=== PATIENT | female | born 1990 | race American Indian/Alaskan Native ===

== ENCOUNTER 2016-06-05 09:19 | Emergency (ER) | payer OTHER ==
[2016-06-05 09:26] VITALS: BP 130/93
--- NOTE | 2016-06-05 10:51 | Emergency Department Report ---
Entered by LAZARO AMOR, acting as scribe for MINNIE ALEXANDRA NP. ED Rash HPI - HPI Chief Complaint: Skin Rash Stated Complaint: RASH Time Seen by Provider: 06/05/16 09:54 Duration: 9 days Location: Upper Extremities (right and left inner elbows), Lower Extremities ( left popliteal fossa and left anterior foot) Suspected Cause: Other (Hx of eczema) Rash Symptoms: Yes Itching, No Facial Swelling, No Tongue/Oral Swelling, No Breathing Difficulties, No Choking Sensation, No Wheezing/Dyspnea, No Peeling, No Blistering, No Fever, No Lightheaded, No Malaise, No Myalgias Severity: moderate Other History: 26 year old female with a PMHx of eczema presents to the ED c/o a eczema flare-ups to her left and right inner elbows, left popliteal fossa, and left anterior foot that began 9 days ago. Patient reports that she usually gets similar episodes, but this episode is worse. 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 Associated symptom includes itching, cracked skin, but she denies fever, chills, myalgias, nausea, and vomiting. PT denies any infected areas of skin. She applied Neosporin with no relief to eczema flare-ups and Benadryl gave her minimal itching relief. Patient states the eczema worsened overnight due to scratching to relieve itch. NKDA. ED Review of Systems ROS: Stated complaint: RASH Other details as noted in HPI Comment: All other systems reviewed and negative Constitutional: denies: chills, fever Respiratory: denies: shortness of breath, wheezing Gastrointestinal: denies: nausea, vomiting Musculoskeletal: denies: myalgia Skin: rash ( eczema flare-ups to left and right inner elbows, left popliteal fossa and left anterior foot), other (cracked skin due to scratching ) ED Past Medical Hx - Past Medical History Previous Medical History?: No - Surgical History Past Surgical History?: No - Social History Smoking Status: Current Every Day Smoker Substance Use Type: Alcohol Rash Exam - Exam General: Vital signs noted. No distress. Alert and acting appropriately. HEENT: No Periorbital Edema, No Conjuctival Injection, No Chemosis, No Perioral Edema, No Tongue Edema, No Uvular Edema, No Compromised Airway, No Drooling Lungs: Yes Good Air Exchange, No Wheezes, No Ronchi, No Stridor, No Cough, No Labored Respirations, No Retractions, No Use of Accessory Muscles, No Other Abnormal Lung Sounds Heart: Yes Regular, No Murmur Skin: Yes Other (eczema like rash to fany AC, with small areas of excoriation fany , left anterior foot, and left popliteal fossa), No Urticarial Rash, No Maculopapular Rash, No Morbilliform rash, No Bulla(e), No Excoriations, No Weeping, No Tenderness, No Erythema, No Edema, No Encrustations Other: Positive: Abdomen Normal, Neurologic Normal, Musculoskeletal Normal ED Course Vital Signs 06/05/16 09:24 Temperature 98.1 F Pulse Rate 82 Respiratory 16 Rate Blood Pressure 130/93 O2 Sat by Pulse 100 Oximetry - Reevaluation(s) Reevaluation #1: 06/05/16 10:49 PT aware of dx and plan of care. PT advised to use a thick ointment to moisturize skin. 06/05/16 10:49 PT states she call follow up with Anthony LACEY for follow up. - Pulse Oximetry Interpretation Digit-Finger Initial Pulse Oximetry Readin Actions Taken: none ED Medical Decision Making - Differential Diagnosis hives, scabies, ezcema Critical care attestation.: If time is entered above; I have spent that time in minutes in the direct care of this critically ill patient, excluding procedure time. ED Disposition Clinical Impression: Acute eczema Disposition: DISCHARGED TO HOME OR SELFCARE Is pt being admited?: No Does the pt Need Aspirin: No Condition: Stable Instructions: Eczema (ED) Additional Instructions: No driving or ETOH after taking Vistaril Prescriptions: hydrOXYzine PAMOATE [Vistaril] 25 mg PO Q6HR PRN #12 capsule PRN Reason: Itching Triamcinolone 0.5% [Kenalog 0.5% CREAM] 1 applic TP TID 7 Days Referrals: PRIMARY CARE, [Primary Care Provider] - 3-5 Days Forms: Work/School Release Form(ED) Time of Disposition: 10:50 This documentation as recorded by the [facility] JASMINE,accurately reflects the service I personally performed and the decisions made by ,MINNIE ALEXANDRA POLICE SUPERINTENDENT.
== END 2016-06-05 10:50 | disposition home or self-care (01) ==
LOC: ED 09:19
DX: L30.9 Dermatitis, unspecified (principal)
CPT/HCPCS: 99281